=== PATIENT | male | born 1970 | race African-American/Black ===

== ENCOUNTER → 2023-09-14 12:20 | Outpatient (REF) | payer OTHER, SELFPAY | LOC: WOUND 12:20 | PROVIDERS: ATTENDING PHYSICIAN Surgery | DX: E11.621 Type 2 diabetes mellitus with foot ulcer (principal); L97.512 Non-pressure chronic ulcer of other part of right foot with fat layer exposed; E11.42 Type 2 diabetes mellitus with diabetic polyneuropathy; Z89.421 Acquired absence of other right toe(s); Z89.411 Acquired absence of right great toe | CPT/HCPCS: 97597; 99204 ==

== ENCOUNTER → 2023-10-05 11:00 | Outpatient (REF) | payer OTHER, SELFPAY | LOC: WOUND 11:00 | PROVIDERS: ATTENDING PHYSICIAN Surgery | DX: E11.621 Type 2 diabetes mellitus with foot ulcer (principal); L97.512 Non-pressure chronic ulcer of other part of right foot with fat layer exposed; E11.42 Type 2 diabetes mellitus with diabetic polyneuropathy; Z89.421 Acquired absence of other right toe(s); Z89.411 Acquired absence of right great toe | CPT/HCPCS: 99212 ==